=== PATIENT | male | born 1955 | race Caucasian/White ===

== ENCOUNTER → 2017-11-02 | Outpatient (CLI) | payer OTHER ==
--- NOTE | 2017-11-02 02:43 | RAD ---
INDICATION: Left leg swelling and warmth COMPARISON: None. TECHNIQUE: Grayscale, color and doppler ultrasound images were obtained of the left lower extremity venous vasculature. LEFT: No thrombus identified in the common femoral vein, femoral vein, popliteal vein or visualized calf veins. IMPRESSION: 1. No thrombus identified in deep venous system of the left lower extremity. 2. There is edema seen within the soft tissues. Electronically signed by: Evan Grace MD (11/02/2017 2:39 AM) [id number]
== END | disposition home or self-care (01) ==
LOC: US 01:58
PROVIDERS: ATTEND Family Medicine
DX: I82.492 Acute embolism and thrombosis of other specified deep vein of left lower extremity (principal); M79.89 Other specified soft tissue disorders
CPT/HCPCS: 93971

== ENCOUNTER → 2020-01-06 | Outpatient (CLI) | payer OTHER ==
--- NOTE | 2020-01-07 00:12 | RAD ---
Right lower extremity venous Doppler ultrasound History: Right leg pain, redness and warmth to touch. Comparison: None. Procedure: Color flow Doppler, Doppler spectral analysis, and 2D images are obtained with and without compression in the area of the common femoral vein, superficial femoral vein - femoral vein junction, main femoral vein (superficial femoral vein) and popliteal vein. Veins of the proximal calf are also imaged. Findings: There is normal color flow, augmentation, and compressibility of all visualized vein segments. No evidence of deep venous thrombus is present. Limited visualization of calf veins due to edema and large body habitus. IMPRESSION: No evidence of right lower extremity deep venous thrombosis. Electronically signed by: Izaiah Pitts MD (01/07/2020 12:09 AM) [id number]
== END | disposition home or self-care (01) ==
LOC: RAD 23:38
PROVIDERS: ATTEND Pediatrics Neonatal-Perinatal Medicine
DX: M79.89 Other specified soft tissue disorders (principal)
CPT/HCPCS: 93971